=== PATIENT | male | born 1995 | race Caucasian/White ===

== ENCOUNTER 2016-05-11 14:28 | Emergency (ER) | payer OTHER ==
[~2016-05-11] VITALS: Wt 68.0 kg
[~2016-05-11 14:28] MED LIST: AMOXICILLIN500 MG PO; BACTRIM DS 8001 TA1 PO; BENADRYL25 M1 PO; CIPRO500 MG PO; CIPROFLOXACIN500 MG PO; ELIMITE 5%60 GM T; KEFLEX500 M1 PO; Motrin,Rufen800 MG PO; Orphenadrine C100 MG PO; PREDNICOT10 MG PO; PREDNICOT20 MG PO; PROTONIX20 MG PO; VYVANSE20 MG PO; ZANTAC 300300 MG PO; ZITHROMAX Z PA250 MG PO
[2016-05-11 14:43] VITALS: BP 121/76
[2016-05-11 15:37] LABS: BILIRUBIN NEGATIVE (NEGATIVE); BLOOD NEGATIVE (NEGATIVE); CLARITY SL CLOUDY (CLEAR); COLOR YELLOW (YELLOW); GLUCOSE NEGATIVE (NEGATIVE); KETONE NEGATIVE (NEGATIVE); LEUKO ESTERASE NEGATIVE (NEGATIVE); NITRITE NEGATIVE (NEGATIVE); PH 5.5 (5.0-9.0); PROTEIN NEGATIVE (NEGATIVE); SPECIFIC GRAVITY >= 1.030 (1.005-1.030); UROBILINOGEN 0.2 E.U./dl (0.2-1.0)
[2016-05-11 15:48] LABS: BACTERIA 2+; CALCIUM OXALATE CRYSTALS 1+; EPITHELIAL CELLS 0-2; MUCOUS TRACE; RBC 0-2 rbc/hpf (0-2); URINE REFLEX COMMENT YES (NO)
== END 2016-05-11 15:58 | disposition home or self-care (01) ==
LOC: ED 14:28
PROVIDERS: Nurse Practitioner Family
DX: N34.2 Other urethritis (principal)

== ENCOUNTER 2016-07-17 00:08 | Emergency (ER) | payer OTHER ==
[~2016-07-17] VITALS: Ht 180.3 cm; Wt 71.7 kg
[2016-07-17 00:17] VITALS: BP 137/101
[2016-07-17] MEDS ORDERED: ANUSOL-HC25 MG R (00:36)
== END 2016-07-17 01:03 | disposition home or self-care (01) ==
LOC: ED 00:08
DX: K60.2 Anal fissure, unspecified (principal)

== ENCOUNTER 2016-08-31 16:07 | Emergency (ER) | payer OTHER ==
[~2016-08-31] VITALS: Ht 180.3 cm; Wt 79.4 kg
[~2016-08-31 16:07] MED LIST changes: +ANUSOL-HC25 MG R
[2016-08-31 16:57] LABS: HEMATOCRIT 43.1 % (42.0-52.0); HEMOGLOBIN 14.9 g/dl (14.0-18.0); MEAN CELL VOLUME 91.3 fl (80.0-94.0); MEAN CORPUSCULAR HGB 31.6 pg (27.0-31.0); MEAN CORPUSCULAR HGB CONC 34.6 g/dl (33.0-37.0); MEAN PLATELET VOLUME 11.3 fl (9.6-12.3); PLATELET COUNT AUTOMATED 86 10*3/uL (130-400); RED BLOOD COUNT 4.72 10*6/uL (4.50-5.90); RED CELL DISTRI WIDTH 12.5 % (0-14.5); WHITE BLOOD COUNT 2.8 10*3/uL (4.8-10.8)
[2016-08-31 17:12] LABS: ALBUMIN 3.9 gm/dl (3.1-4.5); ALKALINE PHOSPHATASE 63 U/L (45-117); BILIRUBIN, TOTAL 0.4 mg/dl (0.2-1.0); BUN 17 mg/dl (7-24); CARBON DIOXIDE 27 mmol/L (21-32); CHLORIDE 97 mmol/L (98-107); EST GLOM FILT AFRICAN AMERICAN > 60 ml/min; GLUCOSE 121 mg/dL (65-99); POTASSIUM 3.6 mmol/L (3.5-5.1); SGOT/AST 70 IU/L (3-35); SGPT/ALT 32 U/L (12-78); SODIUM 135 mmol/L (136-145); TOTAL PROTEIN 7.5 gm/dL (6.4-8.2)
[2016-08-31 17:19] LABS: ATYPICAL LYMPHS 1 % (0-0); LYMPHOCYTE # 0.9 10*3/uL (1.3-4.4); METAMYELOCYTES 1 % (0-0); MONOCYTE # 0.3 10*3/uL (0.1-1.0); NEUTROPHIL # 1.6 10*3/uL (2.3-7.9); NEUTROPHILS 56 % (47-73); PLATELET SUFFICIENCY LOW (NORMAL); TOTAL CELLS COUNTED 100 #CELLS
[2016-08-31 17:53] LABS: BILIRUBIN NEGATIVE (NEGATIVE); BLOOD 1+ (NEGATIVE); CLARITY SL CLOUDY (CLEAR); COLOR YELLOW (YELLOW); GLUCOSE NEGATIVE (NEGATIVE); KETONE NEGATIVE (NEGATIVE); LEUKO ESTERASE NEGATIVE (NEGATIVE); NITRITE NEGATIVE (NEGATIVE); PROTEIN 2+ (NEGATIVE); SPECIFIC GRAVITY >= 1.030 (1.005-1.030); UROBILINOGEN 0.2 E.U./dl (0.2-1.0)
[2016-08-31 18:00] LABS: BACTERIA 2+; URINE REFLEX COMMENT YES (NO); WBC 41-50 wbc/hpf (0-5)
[2016-08-31 19:09] VITALS: BP 111/68
[2016-08-31] MEDS ORDERED: IBU800 MG PO (19:33)
[2016-08-31] MEDS ORDERED: Zofran4 MG PO (19:33)
== END 2016-08-31 19:35 | disposition home or self-care (01) ==
LOC: ED 16:07
PROVIDERS: Physician Assistant
DX: B34.9 Viral infection, unspecified (principal); R11.2 Nausea with vomiting, unspecified; R55 Syncope and collapse

== ENCOUNTER 2016-10-11 21:16 | Emergency (ER) | payer OTHER ==
[~2016-10-11] VITALS: Ht 180.3 cm; Wt 72.6 kg
[~2016-10-11 21:16] MED LIST changes: +IBU800 MG PO; +Zofran4 MG PO
[2016-10-11 21:21] VITALS: BP 134/87
[2016-10-11] MEDS ORDERED: CEPHALEXIN500 M1 PO (21:57)
== END 2016-10-11 21:49 | disposition home or self-care (01) ==
LOC: ED 21:16
DX: L02.31 Cutaneous abscess of buttock (principal)

== ENCOUNTER 2016-10-15 16:54 | Emergency (ER) | payer OTHER ==
[~2016-10-15] VITALS: Ht 180.3 cm; Wt 72.6 kg
[~2016-10-15 16:54] MED LIST changes: +CEPHALEXIN500 M1 PO
[2016-10-15 17:05] VITALS: BP 118/60
[2016-10-15] MEDS ORDERED: KEFLEX 500 MG E2 CAP PO (17:34)
== END 2016-10-15 17:51 | disposition home or self-care (01) ==
LOC: ED 16:54
DX: L02.415 Cutaneous abscess of right lower limb (principal)

== ENCOUNTER 2016-10-16 18:38 | Emergency (ER) | payer OTHER ==
[~2016-10-16] VITALS: Ht 180.3 cm; Wt 72.6 kg
[~2016-10-16 18:38] MED LIST changes: +KEFLEX 500 MG E2 CAP PO
[2016-10-16 18:52] VITALS: BP 142/76
[2016-10-16 19:20] LABS: BASO % 0.3 % (0.0-1.0); EOS # 0.1 10*3/uL (0.0-0.4); EOS % 1.3 % (1.0-4.0); HEMATOCRIT 39.2 % (42.0-52.0); LYMPH # 3.3 10*3/uL (1.3-4.4); LYMPH % 41.9 % (27.0-41.0); MEAN CELL VOLUME 93.1 fl (80.0-94.0); MEAN CORPUSCULAR HGB 30.9 pg (27.0-31.0); MEAN CORPUSCULAR HGB CONC 33.2 g/dl (33.0-37.0); MEAN PLATELET VOLUME 9.9 fl (9.6-12.3); MONO # 0.6 10*3/uL (0.1-1.0); NEUT # 3.8 10*3/uL (2.3-7.9); NEUT % 48.1 % (47.0-73.0); PLATELET COUNT AUTOMATED 230 10*3/uL (130-400); RED BLOOD COUNT 4.21 10*6/uL (4.50-5.90); RED CELL DISTRI WIDTH 12.5 % (0-14.5); WHITE BLOOD COUNT 7.9 10*3/uL (4.8-10.8)
[2016-10-16 19:38] LABS: ALBUMIN 3.7 gm/dl (3.1-4.5); ALKALINE PHOSPHATASE 80 U/L (45-117); BUN 13 mg/dl (7-24); CHLORIDE 102 mmol/L (98-107); CREATININE 0.91 mg/dL (0.70-1.30); POTASSIUM 4.2 mmol/L (3.5-5.1); SGOT/AST 11 IU/L (3-35); SGPT/ALT 16 U/L (12-78); SODIUM 138 mmol/L (136-145); TOTAL PROTEIN 8.7 gm/dL (6.4-8.2)
[2016-10-16 19:39] LABS: TROPONIN I < 0.015 ng/ml (<0.045)
== END 2016-10-16 21:25 | disposition home or self-care (01) ==
LOC: ED 18:38
PROVIDERS: Nurse Practitioner Family
DX: L02.415 Cutaneous abscess of right lower limb (principal)

== ENCOUNTER 2016-10-29 19:37 | Emergency (ER) | payer OTHER ==
[~2016-10-29] VITALS: Ht 180.3 cm; Wt 72.6 kg
[2016-10-29] MEDS ORDERED: bactrim ds PO (19:52)
== END 2016-10-29 22:14 | disposition home or self-care (01) ==
LOC: ED 19:37
DX: L02.31 Cutaneous abscess of buttock (principal); L02.415 Cutaneous abscess of right lower limb; L02.416 Cutaneous abscess of left lower limb

== ENCOUNTER 2016-11-02 21:08 | Emergency (ER) | payer OTHER ==
[~2016-11-02] VITALS: Ht 180.3 cm; Wt 72.6 kg
[~2016-11-02 21:08] MED LIST changes: +bactrim ds PO
[2016-11-02 21:16] VITALS: BP 130/64
== END 2016-11-02 22:15 | disposition home or self-care (01) ==
LOC: ED 21:08
DX: L02.31 Cutaneous abscess of buttock (principal)

== ENCOUNTER 2016-11-08 19:53 | Emergency (ER) | payer OTHER ==
[~2016-11-08] VITALS: Ht 180.3 cm; Wt 72.6 kg
[2016-11-08 20:09] VITALS: BP 133/70
[2016-11-08] MEDS ORDERED: Motrin,Rufen800 MG PO (20:43)
[2016-11-08] MEDS ORDERED: VIBRAMYCIN100 MG PO (20:43)
== END 2016-11-08 20:43 | disposition home or self-care (01) ==
LOC: ED 19:53
DX: L02.211 Cutaneous abscess of abdominal wall (principal)

== ENCOUNTER 2017-03-24 19:05 | Emergency (ER) | payer OTHER ==
[~2017-03-24] VITALS: Ht 180.3 cm; Wt 81.6 kg
[~2017-03-24 19:05] MED LIST changes: +VIBRAMYCIN100 MG PO
[2017-03-24] MEDS ORDERED: CLINDAMYCIN HC300 MG PO (19:33)
== END 2017-03-24 20:00 | disposition home or self-care (01) ==
LOC: ED 19:05
DX: S80.862A Insect bite (nonvenomous), left lower leg, initial encounter (principal); L03.818 Cellulitis of other sites; W57.XXXA Bitten or stung by nonvenomous insect and other nonvenomous arthropods, initial encounter; Y93.89 Activity, other specified; Y92.89 Other specified places as the place of occurrence of the external cause; Y99.8 Other external cause status

== ENCOUNTER 2017-11-13 12:15 | Emergency (ER) | payer SELFPAY ==
[~2017-11-13] VITALS: Ht 30.5 cm; Wt 76.7 kg
[~2017-11-13 12:15] MED LIST changes: +CLINDAMYCIN HC300 MG PO
[2017-11-13 13:11] LABS: BASO % 0.3 % (0.0-1.0); EOS # 0.2 10*3/uL (0.0-0.4); EOS % 2.5 % (1.0-4.0); HEMOGLOBIN 14.4 g/dl (14.0-18.0); LYMPH # 2.1 10*3/uL (1.3-4.4); LYMPH % 30.9 % (27.0-41.0); MEAN CELL VOLUME 91.5 fl (80.0-94.0); MEAN CORPUSCULAR HGB 31.4 pg (27.0-31.0); MEAN CORPUSCULAR HGB CONC 34.3 g/dl (33.0-37.0); MEAN PLATELET VOLUME 9.9 fl (9.6-12.3); MONO # 0.6 10*3/uL (0.1-1.0); MONO % 8.3 % (3.0-9.0); NEUT # 3.9 10*3/uL (2.3-7.9); NEUT % 57.9 % (47.0-73.0); PLATELET COUNT AUTOMATED 158 10*3/uL (130-400); RED BLOOD COUNT 4.59 10*6/uL (4.50-5.90); RED CELL DISTRI WIDTH 14.1 % (0-14.5); WHITE BLOOD COUNT 6.8 10*3/uL (4.8-10.8)
[2017-11-13 13:26] LABS: ALKALINE PHOSPHATASE 80 U/L (45-117); BUN 14 mg/dl (7-24); CHLORIDE 100 mmol/L (98-107); CREATININE 1.14 mg/dL (0.70-1.30); POTASSIUM 3.7 mmol/L (3.5-5.1); SGOT/AST 13 IU/L (3-35); SGPT/ALT 18 U/L (12-78); SODIUM 136 mmol/L (136-145); TOTAL PROTEIN 8.3 gm/dL (6.4-8.2)
[2017-11-13 14:39] VITALS: BP 130/76
[2017-11-13] MEDS ORDERED: Cleocin150 MG PO (14:50)
== END 2017-11-13 15:30 | disposition left against medical advice (07) ==
LOC: ED 12:15
PROVIDERS: Nurse Practitioner Family
DX: J36 Peritonsillar abscess (principal)